=== PATIENT | female | born 1960 | race Caucasian/White ===

== ENCOUNTER 2017-07-30 17:53 | Observation (INO) ==
--- NOTE | 2017-07-30 18:43 | Diag Imaging Result Doc PS360 ---
EXAM: CT HEAD W/O CONTRAST HISTORY: stroke like symptoms TECHNIQUE: CT brain without contrast. Dose reduction protocol. COMPARISON: 09/19/2011 FINDINGS: No parenchymal hemorrhage. No epidural or subdural hematoma. No subarachnoid hemorrhage. No mass identified on this noncontrasted exam. No hydrocephalus. No sinus opacification. IMPRESSION: No hemorrhage. Negative brain CT without contrast. Electronically signed by Yasmany Pérez 07/30/2017 6:40 PM
[2017-07-30 18:51] LABS: BILIRUBIN URINE NEGATIVE (NEGATIVE); BLOOD URINE NEGATIVE (NEGATIVE); CLARITY CLEAR (CLEAR); COLOR YELLOW; GLUCOSE URINE NEGATIVE (NEGATIVE); LEUKOCYTES URINE 1+ (NEGATIVE); NITRITE URINE POSITIVE (NEGATIVE); PROTEIN URINE NEGATIVE (NEGATIVE); SP GRAVITY URINE 1.015; UROBILINOGEN URINE NORMAL
[2017-07-30 18:52] LABS: UR AMPHETAMINES QUAL NONE DETECTED (NONE DETECT); UR BARBITUATES QUAL NONE DETECTED (NONE DETECT); UR BENZODIAZEPIN QUAL PRESUMPTIVE POSITIVE (NONE DETECT); UR CANNABINOIDS QUAL NONE DETECTED (NONE DETECT); UR COCAINE QUAL NONE DETECTED (NONE DETECT); UR MDMA QUAL NONE DETECTED (NONE DETECT); UR METHADONE QUAL NONE DETECTED (NONE DETECT); UR METHAMPHETAMINE QUAL NONE DETECTED (NONE DETECT); UR OPIATES QUAL NONE DETECTED (NONE DETECT); UR OXYCODONE QUAL NONE DETECTED (NONE DETECT); UR PCP QUAL NONE DETECTED (NONE DETECT); UR TCA QUAL PRESUMPTIVE POSITIVE (NONE DETECT); URINE CAST NONE SEEN /LPF; URINE CRYSTAL NONE SEEN /HPF; URINE CULTURE PL NEEDED? YES; URINE EPITHELIAL CELLS >10 /HPF (<10); URINE RBC <10 /HPF (<10); URINE SOURCE CLEAN CATCH
[2017-07-30 19:47] LABS: MANUAL DIFF NEEDED? NO
[2017-07-30 19:49] LABS: BASO% 0.9 % (0.0-0.8); EOS# 0.21 X1000 (0.0-0.7); EOS% 3.6 % (0.0-10.0); HEMATOCRIT 38.5 % (37.0-47.0); HEMOGLOBIN 12.1 g/dL (12.0-16.0); LYMPH% 37.9 % (20.5-51.1); MCH 31.3 PG (27-31); MCHC 31.4 g/dL (33-37); MCV 99.5 FL (81-99); MONO# 0.64 X1000 (0.11-0.59); MPV 10.2 FL (7.4-10.4); NEUT% 46.6 % (42.2-75.2); PLT 235 X1000 (130-400); RBC 3.87 XMIL (4.2-5.4)
[2017-07-30 20:09] LABS: AGAP 8; ALBUMIN 3.5 g/dL (3.5-5.0); ALKALINE PHOSPHATASE 87 U/L (32-104); BUN 10 mg/dL (8-22); CALCIUM 9.3 mg/dL (8.8-10.2); CHLORIDE 104 mmol/L (98-107); COSMO 274; GOT 14 U/L (10-30); GPT 10 U/L (10-36); POTASSIUM 3.9 mmol/L (3.5-5.1); SODIUM 138 mmol/L (136-145); TCO2 26 mmol/L (25-35); TOTAL PROTEIN 6.2 g/dL (6.3-8.3)
[2017-07-30] MEDS ORDERED: TYLENOL PO PRN (20:15)
[2017-07-30] MEDS ORDERED: ZOFRAN IV PRN (20:15)
[2017-07-30] MEDS ORDERED: NS 1,000 ML IV ONE (20:15)
[2017-07-30] MEDS ORDERED: LEVAQUIN 500 MG/D5W 500 MG/100 ML IVPB IV ONE (20:31)
--- NOTE | 2017-07-30 20:31 | EKG Report ---
Test Performed on : 07/30/2017 8:06:50 PM Test Reason : CP Blood Pressure : / mmHG Vent. Rate : 063 BPM Atrial Rate : 063 BPM P-R Int : 162 ms QRS Dur : 088 ms QT Int : 450 ms P-R-T Axes : 049 030 053 degrees QTc Int : 460 ms Normal sinus rhythm. Cannot rule out Anterior infarct , age undetermined Abnormal ECG When compared with ECG of 16-SEP-2013 10:07, No significant change was found Unconfirmed Result
--- NOTE | 2017-07-30 20:33 | PROVIDER DOCUMENTATION ---
This chart was entered by Emily Acosta Scribe, acting as scribe for Luis Nix MD. HPI-General Adult - General Chief Complaint: General Adult Stated Complaint: STROKE LIKE SX Time Seen by Provider: 07/30/17 18:16 Source: patient Allergies/Adverse Reactions: Patient Allergies Allergy/AdvReac Type Severity Reaction Status Date / Time Penicillins Allergy Intermediate RASH Verified 07/30/17 18:09 Home Medications: Home Medication List Medication Instructions Recorded Confirmed Last Taken Type Budesonide/Formoterol Fumarate 2 puff INH BID 07/08/14 09/25/16 09/24/16 History [Symbicort 160-4.5 Mcg Inhaler] Gabapentin [Neurontin] 800 mg PO HS 10/29/14 09/25/16 09/24/16 History Nitroglycerin S.l. [Nitroglycerin] 0.3 mg SL PRN PRN 11/26/14 09/25/16 05/08/15 09:00 History Ropinirole HCl [Requip] 3 mg PO QHS #30 tablet 05/08/15 09/25/16 09/24/16 Rx Alprazolam [Xanax] 1 mg PO BID 02/22/16 09/25/16 09/24/16 History Hydrocodone/Acetaminophen [Lortab 1 tab PO PRN MDD 4 09/25/16 09/25/16 History 7.5-325 mg Tablet] - History of Present Illness -Gen Adult Nature of Presenting Problems: 57 year old F presents to the ED with a cc of neck pain, headache, and left sided numbness with an onset of 1 hour [employer]. family states that speech was effected, vision changes, and facial droop. Pt states that pain is a 9/10. Family states that pt slumped over during a conversation. Pt also c/o shortness of breath. Pt is being followed by Dr. Muñoz at [place]. Pt has a questionable history of seizures. Location of Pain/Injury: reports: head, neck Pain Radiation: reports: no radiation Quality of Pain: reports: aching Severity: reports: moderate Onset/Duration: reports: abrupt, 1-3 hours ago Timing: reports: still present Associated Symptoms: reports: back/neck pain, headaches, weakness, other ( numbness) Similar Symptoms Previously?: No Recently seen or treated by another doctor?: No Review of Systems - Adult - REVIEW OF SYSTEMS - ADULT Constitutional: denies: chills, fever Eyes: reports: blurred vision. denies: eye pain Ears, Nose, Mouth & Throat: reports: no symptoms reported Cardiovascular: denies: chest pain, palpitations Respiratory: denies: cough, shortness of breath Gastrointestinal: denies: abdominal pain, nausea, vomiting Genitourinary: reports: no symptoms reported Musculoskeletal: reports: muscle weakness, neck pain. denies: muscle aches Integumentary: denies: skin sores/ulcer, skin thickening Neurological: reports: headache/migraines, numbness. denies: slurred speech Psychiatric: reports: no symptoms reported Endocrine: reports: no symptoms reported Hematologic/Lymphatic: reports: no symptoms reported Allergic/Immunologic: reports: no symptoms reported All Other Systems: Reviewed and Negative Past History - Adult - PAST MEDICAL HISTORY-ADULT Review of Records: reports: Nursing Assessment Review, Medications Reviewed Major Childhood Illnesses: reports: denies history Cardiovascular: reports: murmur, other (heart murmur, history of rheumatic fever ) Respiratory: reports: COPD, sleep apnea Gastrointestinal: reports: denies history Obstetrical/Gynecological: reports: denies history Genitourinary: reports: denies history Musculoskeletal: reports: orthopedic injury Neurological: reports: Seizures/Epilepsy Endocrine/Immune: reports: denies history Other Conditions: reports: denies history - PRIOR SURGERIES/PROCEDURES Surgical/Procedure History: reports: hysterectomy, BTL, - IMMUNIZATION STATUS Childhood Immunizations: See Nurse Assessment Flu Vaccine: See Nurse Assessment - FAMILY HISTORY Family History: reviewed, not pertinent - SOCIAL HISTORY Smoking: cigarettes Provider spent 3-5 mins advising pt. on dangers of tobacco.: Discussed manners to quit use, and f/u contacts for add'l counseling. Substance Use: none/never Alcohol Use Frequency: never Physical Exam-General - PHYSICAL EXAM-ADULT Initial Vital Signs Reviewed: Yes - CONSTITUTIONAL General Appearance: alert - EYES Eyes: PERRL/EOMI, pink conjunctivae - RESPIRATORY Respiratory: chest non-tender, lungs clear, normal breath sounds - CARDIOVASCULAR Cardiovascular: normal peripheral pulses, regular rate, rhythm, no edema - GASTROINTESTINAL (ABDOMEN) Abdominal Exam: normal bowel sounds, non tender, soft - MUSCULOSKELETAL Extremity: normal inspection - SKIN Integumentary: normal color, normal turgor, warm/dry - NEUROLOGIC Neurologic: sensory deficit (left), other (studdering speech). negative: facial droop, focal weakness, motor weakness - PSYCHIATRIC Psych/Mental Status: normal mood/affect, normal thought content, normal thought process, oriented x 3 Progress - PLAN OF CARE/RESULTS Progress/Plan/Lab Results: Vital Signs - 8 hr 07/30/17 17:58 07/30/17 19:19 Temperature 97.6 F 97.3 F L Pulse Rate 74 67 Respiratory Rate 20 20 Blood Pressure 142/80 146/76 O2 Sat by Pulse Oximetry 93 L 95 Laboratory Results - last 24 hr 07/30/17 07/30/17 18:10 18:10 Urine Source CLEAN CATCH Urine Color YELLOW Urine Clarity CLEAR Urine pH 6.0 Ur Specific [place] 1.015 Urine Protein NEGATIVE Urine Ketones NEGATIVE Urine Blood NEGATIVE Urine Nitrite POSITIVE A Urine Bilirubin NEGATIVE Urine Urobilinogen NORMAL Urine Microscopic RBC <10 Urine WBC 1+ A Urine Microscopic WBC 10-20 A Ur Epithelial Cells >10 A Urine Crystals NONE SEEN Urine Bacteria 2+ Urine Casts NONE SEEN Urine Yeast NONE SEEN Urine Glucose NEGATIVE Urine Opiates Screen NONE DETECTED Ur Oxycodone Screen NONE DETECTED Urine Methadone Screen NONE DETECTED Ur Barbituates Screen NONE DETECTED Ur Tricyclics Screen PRESUMPTIVE POSITIVE A Ur Phencyclidine Scrn NONE DETECTED Ur Amphetamines Screen NONE DETECTED U Methamphetamines Scrn NONE DETECTED Urine MDMA Screen NONE DETECTED U Benzodiazepines Scrn PRESUMPTIVE POSITIVE A Urine Cocaine Screen NONE DETECTED U Cannabinoids Screen NONE DETECTED Orders Category Date Time Status CT HEAD W/O CONTRAST [CT] Stat Exams 07/30/17 18:06 Completed CBC WITH ELECTRONIC DIFF [HEME] Stat Lab 07/30/17 19:17 Ordered COMPREHENSIVE METABOLIC PANEL [CHEM] Stat Lab 07/30/17 19:17 Ordered UDS [URINE DRUG SCREEN PL] Stat Lab 07/30/17 18:10 Completed URINE CULTURE [RM] Routine Lab 07/30/17 18:52 Ordered ua [URINALYSIS PL W/POSS RFLX CULT] [URINALYSIS] Stat Lab 07/30/17 18:10 Completed EKG [EKG] Stat Ther 07/30/17 18:49 Ordered Result Diagrams: 07/30/17 19:35 - CONSULTS/PCP/HOSPITALIST Notification #1 *Consult/PCP/Hospitalist*: Dr. Purcell(hospitalist) Time Discussed: 20:03 Reason/Comments: consult for admission Consult Disposition: Admit #[address]: [address] WOMACK AT [facility] Time Discussed: 07:30 (DISCUSSED FINDINGS AND PATIENT IS NOT TO BE TRANSFERRED BUT TO TREAT SX SYMPTOMATICALLY.) Departure - Departure Date of Disposition Decision: 07/30/17 Time of Disposition Decision: 20:12 DIAGNOSIS: Sensation disturbance of skin Disposition: ADMITTED INPATIENT 09 Certified Medical Emergency: Emergent Condition: Fair Referrals and Follow-Ups: ALIREZA SUN CRNP [Primary Care Provider] - - Critical Care Note This patient required my direct & personal management of CC.: No Attestation - Physician/ CARLA Attestation Patient care was provided by Advanced Practice Provider:: No The physician spent face to face time with patient:: Yes Advanced Practice Provider documentation review:: Supervising physician onsite and consulted in the evaluation and care of this patient. The physician did have a face to face encounter with the patient. Glascow Coma Score - Glascow Coma Score Best Eye Response (Cushing): (4) open spontaneously Best Verbal Response (Mian): (5) oriented Best Motor Response ([place]): (6) obeys commands [place] Total: 15 This chart was documented by the indicated scribe, (Emily Acosta Scribe) and accurately reflects the services I performed and decisions made by me, Luis Nix MD, as attested by the provider's signature.
[2017-07-30] MEDS ORDERED: ZOFRAN IV ONE (21:20)
[2017-07-30] MEDS: MORPHINE IV PRN (21:32)
[2017-07-31] MEDS: MORPHINE IV PRN ×3 (03:07→13:21)
[2017-07-31] MEDS ORDERED: NORCO-7.5 PO PRN (08:11)
[2017-07-31] MEDS ORDERED: NITROGLYCERIN SL PRN (08:11)
[2017-07-31] MEDS ORDERED: XANAX PO PRN (08:11)
[2017-07-31] MEDS: ZOFRAN IV PRN ×2 (08:14→13:25)
[2017-07-31] MEDS ORDERED: SYNTHROID PO SCH ×2 (08:30)
[2017-07-31] MEDS ORDERED: AMITIZA PO SCH (09:00)
[2017-07-31] MEDS ORDERED: PLAVIX PO SCH (09:00)
[2017-07-31] MEDS ORDERED: ASPIRIN PO SCH (09:00)
[2017-07-31] MEDS ORDERED: KEPPRA PO SCH (09:00)
[2017-07-31] MEDS: NEURONTIN PO SCH ×3 (09:35→17:45)
--- NOTE | 2017-07-31 09:52 | Extremity Venous Study ---
EXAM: Carotid Ultrasound HISTORY: tia TECHNIQUE: Carotid Doppler ultrasound COMMENT: There is no evidence of hemodynamically significant stenosis by velocity criteria on either side. There is antegrade flow in both vertebral arteries. IMPRESSION: No evidence of hemodynamically significant stenosis (0-39%.) Electronically signed by Peter Deleon 07/31/2017 9:49 AM
--- NOTE | 2017-07-31 11:59 | EKG Report ---
Test Performed on : 07/31/2017 11:14:27 AM Test Reason : Chest Pain Blood Pressure : / mmHG Vent. Rate : 059 BPM Atrial Rate : 059 BPM P-R Int : 160 ms QRS Dur : 084 ms QT Int : 460 ms P-R-T Axes : 047 045 042 degrees QTc Int : 455 ms Sinus bradycardia. Otherwise normal ECG When compared with ECG of 30-JUL-2017 20:06, (Unconfirmed) No significant change was found Confirmed by Andre Sapp MD ([id number]) on 08/11/2017 1:15:39 PM
--- NOTE | 2017-07-31 13:09 | Diag Imaging Result Doc PS360 ---
MRI BRAIN W W/O CONTRAST - 07/31/2017 INDICATION: tia COMPARISON: Head CT 07/30/2017 FINDINGS: There is no area of restricted diffusion. The ventricles and sulci are normal in size and contour. No intracranial mass or hemorrhage. No area of abnormal contrast enhancement. Midline structures including the optic chiasm and pituitary are normal. IMPRESSION: Negative exam. Electronically signed by Ayo Perez 07/31/2017 1:06 PM
[2017-07-31 15:11] VITALS: BP 130/71
[2017-07-31] MEDS ORDERED: MYLICON PO ONE (18:45)
[2017-07-31] MEDS ORDERED: LEVAQUIN 750 MG/D5W 750 MG/150 ML IVPB IV SCH (21:00)
[2017-07-31] MEDS ORDERED: REQUIP PO SCH (21:00)
--- NOTE | 2017-08-01 17:50 | DISCHARGE SUMMARY ---
ADMISSION DATE: 07/30/2017 DISCHARGE DATE: 07/31/2017 DISCHARGE DIAGNOSES: 1. Gram-negative hesham urinary tract infection. Final culture and sensitivity has not returned, but patient is adamant that she be discharged home. 2. Acute metabolic encephalopathy, resolved. Likely secondary to gram-negative hesham urinary tract infection. 3. Chronic tobacco abuse. 4. Others. CONSULTATIONS: None. PROCEDURES: Carotid and MRI both were negative. BRIEF HOSPITAL COURSE: Patient is a 57-year-old female who presented to the emergency department confused and disoriented. She notes that quickly her symptoms resolved and she is feeling back to normal. She has no chest pain, palpitations. Denies any focal neurologic changes. Denies any urinary symptoms. Denies any fevers or chills. DISPOSITION: The patient will be discharged home. She will follow up with her primary care in 1- 2 weeks. She will call her primary care in 2 days to follow up on the urinary culture. She will be discharged home on Bactrim for 7 days. TIME SPENT: Thirty-five minutes was spent in total care. cc: Tyler Purcell MD
--- NOTE | 2017-08-13 16:56 | HISTORY AND PHYSICAL ---
CHIEF COMPLAINT: Left-sided numbness. HISTORY OF PRESENT ILLNESS: Patient is a 57-year-old female who presented to the emergency department complaining of neck pain, headache and left-sided numbness that started a little more than an hour prior to presenting to the ER. The family notes that her speech was affected. It was slurred and difficult to understand. She felt as though she was having some visual changes. The family thought she had some left-sided facial drooping. She states that her pain was 9/10 in intensity. ALLERGIES: Penicillin causing a rash. MEDICATIONS: Symbicort 2 puffs b.i.d., Neurontin 800 at bedtime, Requip 3 at bedtime, Xanax 2 mg b.i.d. and [place] 7.5. PAST MEDICAL HISTORY: History of heart murmur due to rheumatic fever, COPD, sleep apnea, history of seizures. She has had a hysterectomy, a BTL and a . She sees Dr. Hua in [place] for her seizures. REVIEW OF SYSTEMS: As noted above. Patient denies any current chest pain, palpitations. Denies any cough, congestion, shortness of breath. Denies abdominal pain, nausea, vomiting. Denies any muscle aches. Notes that she is still having some numbness, but states the slurred speech has resolved and her speech is back to her baseline. Denies skin rashes, weight loss, or weight gain. Denies any pain in her eyes. Denies any current fevers or chills. FAMILY HISTORY: Noncontributory. SOCIAL HISTORY: Patient lives at home. She does continue to smoke cigarettes. Denies any illicit drug use. PHYSICAL EXAM: VITAL SIGNS: Temp 97.3 degrees, pulse 67, respiratory 20, BP 146/76, saturating 95% on room air. GENERAL: Patient is awake, alert, and oriented. She is currently in no respiratory distress. Speech appears regular. Memory appears intact. HEENT: Normocephalic, atraumatic. MAYA. Oropharynx clear. Tongue thrust normal. Uvula midline. NECK: Supple. No JVD. CV: Positive systolic murmur. Rate and rhythm controlled. CHEST: Clear nonlabored. ABDOMEN: Soft, nondistended. No masses. EXTREMITIES: Moves all extremities. 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 NEUROLOGIC: She does not have any facial droop currently. She appears to have some decreased sensation on the left. She has no motor weakness. LABORATORIES: CBC normal. Urinalysis normal. ASSESSMENT: 1. Acute transient ischemic attack. 2. Chronic obstructive pulmonary disease. 3. Chronic tobacco abuse. 4. Chronic anxiety. 5. Chronic pain. PLAN: Dr. Hua in [place] has been consulted. He feels though her symptoms are minimal and not consistent on exam, therefore transfer to [place] is not currently necessary, should be treated symptomatically. We will continue her Crestor. Again discussed with patient the perils of smoking as well as ways to stop. We will place her in the hospital on oxygen and IV fluids. We will check carotid, echo and will follow. cc: Tyler Purcell MD
== END 2017-07-31 19:10 | disposition home or self-care (01) ==
LOC: P.ED 17:53 → P.MEDSURG 20:54 → INTOOBSV 20:54
PROVIDERS: ATTEND Family Medicine